=== PATIENT | male | born 1975 | race Native Hawaiian/Other Pacific Islander ===

== ENCOUNTER 2020-08-19 12:55 | Outpatient (CLI) | payer OTHER ==
[~2020-08-19] VITALS: Ht 177.8 cm; Wt 83.9 kg
[~2020-08-19 12:55] MED LIST: OMEP40CA PO
[2020-08-19 13:36] LABS: PLATELET COUNT 133 K/uL (142-355)
[2020-08-19 13:55] LABS: POTASSIUM 3.6 mmol/L (3.6-5.2)
== END 2020-08-19 16:10 | disposition home or self-care (01) ==
LOC: INF 12:55
PROVIDERS: ATTEND Family Medicine
DX: U07.1 COVID-19 (principal)
CPT/HCPCS: 36591; 80053; 85027; 96365; Q0239

== ENCOUNTER 2021-02-04 10:02 | Outpatient (CLI) | payer OTHER | END 2021-02-04 23:00 | disposition home or self-care (01) | LOC: MRI 10:02 | PROVIDERS: ATTEND Nurse Practitioner Family | DX: M54.12 Radiculopathy, cervical region (principal) ==

== ENCOUNTER 2021-06-23 16:32 | Outpatient (CLI) | payer OTHER | END 2021-06-23 19:26 | disposition home or self-care (01) | LOC: RAD 16:32 | PROVIDERS: ATTEND Nurse Practitioner Family | DX: S89.92XA Unspecified injury of left lower leg, initial encounter (principal); S90.32XA Contusion of left foot, initial encounter; Y92.9 Unspecified place or not applicable ==

== ENCOUNTER 2021-07-09 10:05 | Outpatient (CLI) | payer OTHER ==
[2021-07-09 10:40] LABS: PLATELET COUNT 195 K/uL (142-355)
[2021-07-09 10:57] LABS: POTASSIUM 4.1 mmol/L (3.6-5.2)
== END 2021-07-09 19:24 | disposition home or self-care (01) ==
LOC: LABW 10:05
PROVIDERS: ATTEND Family Medicine
DX: R53.83 Other fatigue (principal); E78.5 Hyperlipidemia, unspecified; E55.9 Vitamin D deficiency, unspecified
CPT/HCPCS: 36415; 80053; 80061; 82306; 82607; 84403; 84443; 85027

== ENCOUNTER 2022-06-08 13:38 | Outpatient (CLI) | payer OTHER ==
[2022-06-08 14:26] LABS: PLATELET COUNT 228 K/uL (142-355)
[2022-06-08 14:37] LABS: POTASSIUM 3.9 mmol/L (3.6-5.2)
== END 2022-06-08 22:01 | disposition home or self-care (01) ==
LOC: LABW 13:38
PROVIDERS: ATTEND Nurse Practitioner Family
DX: R53.83 Other fatigue (principal); E55.9 Vitamin D deficiency, unspecified
CPT/HCPCS: 36415; 80053; 82306; 82607; 82670; 83001; 84402; 84403; 84436; 84443; 84481; 85027; 86376; 86644; 86645; 86664; 86665

== ENCOUNTER 2023-04-10 07:21 | Outpatient (CLI) | payer OTHER ==
[2023-04-10 07:37] LABS: PLATELET COUNT 200 K/uL (142-355)
[2023-04-10 07:48] LABS: POTASSIUM 4.5 mmol/L (3.6-5.2)
== END 2023-04-10 22:00 | disposition home or self-care (01) ==
LOC: LABW 07:21
PROVIDERS: ATTEND Nurse Practitioner Family
DX: E78.2 Mixed hyperlipidemia (principal); I10 Essential (primary) hypertension; R53.83 Other fatigue
CPT/HCPCS: 36415; 80053; 80061; 81002; 84402; 84403; 85027